=== PATIENT | female | born 1950 | race African-American/Black ===

== ENCOUNTER → 2016-12-14 | Emergency (ER) | payer SELFPAY ==
[~2016-12-14] MED LIST: CERTAGEN PO; DM MED; LANTUS INSULIN SQ; METFORMIN PO; VICODIN 5/500 T1 TAB PO
== END | disposition home or self-care (01) ==
LOC: CFTX 18:29
DX: Z48.02 Encounter for removal of sutures (principal)
CPT/HCPCS: 99281